=== PATIENT | male | born 1960 | race African-American/Black ===

== ENCOUNTER 2024-04-04 07:39 | Emergency (ER) | payer MEDICAID ==
[~2024-04-04] VITALS: Ht 172.7 cm; Wt 57.4 kg
[2024-04-04 07:52] VITALS: TEMP 99.1
[2024-04-04 08:01] VITALS: BP 123/77; PULSE 74; RESP 18; O2SAT 97
[2024-04-04] MEDS: LIDOCAINE W/ EPINEPHRINE 1% 20ML VIAL ID ONE (08:54)
[2024-04-04] MEDS ORDERED: MUPI2OIN2 EX (09:51)
[2024-04-04] MEDS ORDERED: NABU-72 PO (09:51)
[2024-04-04] MEDS ORDERED: CEPH500C PO (09:51)
== END 2024-04-04 09:51 | disposition home or self-care (01) ==
LOC: ER 07:39
DX: S01.81XA Laceration without foreign body of other part of head, initial encounter (principal); I10 Essential (primary) hypertension; F17.210 Nicotine dependence, cigarettes, uncomplicated; Z79.899 Other long term (current) drug therapy; W22.8XXA Striking against or struck by other objects, initial encounter; Y93.89 Activity, other specified; Y92.89 Other specified places as the place of occurrence of the external cause; Y99.8 Other external cause status
CPT/HCPCS: 12013